=== PATIENT | male | born 1990 | race Caucasian/White ===

== ENCOUNTER 2017-07-11 22:56 | Emergency (ER) | payer OTHER ==
[~2017-07-11] VITALS: Ht 175.3 cm; Wt 88.2 kg
[2017-07-11 23:07] VITALS: BP 125/78
== END 2017-07-12 00:18 | disposition home or self-care (01) ==
LOC: ED 07-12 00:09
DX: S16.1XXA Strain of muscle, fascia and tendon at neck level, initial encounter (principal); G89.11 Acute pain due to trauma; M54.5 Low back pain; M25.561 Pain in right knee; M25.571 Pain in right ankle and joints of right foot; V49.9XXA Car occupant (driver) (passenger) injured in unspecified traffic accident, initial encounter; Y93.89 Activity, other specified; Y92.89 Other specified places as the place of occurrence of the external cause; Y99.9 Unspecified external cause status
CPT/HCPCS: 99282

== ENCOUNTER 2017-08-06 01:35 | Emergency (ER) | payer OTHER ==
[~2017-08-06] VITALS: Ht 175.3 cm; Wt 78.0 kg
[2017-08-06 01:42] VITALS: BP 137/80
== END 2017-08-06 05:12 | disposition home or self-care (01) ==
LOC: ED 03:50
DX: G89.11 Acute pain due to trauma (principal); M79.641 Pain in right hand
CPT/HCPCS: 29125; 99284

== ENCOUNTER 2020-07-23 14:28 | Emergency (ER) | payer OTHER ==
[~2020-07-23] VITALS: Ht 172.7 cm; Wt 82.0 kg
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
--- NOTE | 2020-07-23 15:48 | NUR ---
PT TO CT AND BACK. STATES NO NEEDS AT THIS TIME. VSS. NAD. WILL CONTINUE TO MONITOR
--- NOTE | 2020-07-23 16:09 | NUR ---
PT RESTING ON [employer]. STATES 3/10 NECK PAIN. DENIES NEED FOR PAIN MEDICATION INTERVENTION AT THIS TIME. VSS. NAD. CALL LIGHT W/IN REACH.
--- NOTE | 2020-07-23 16:46 | NUR ---
PT AMBULATED TO DISCHARGE W/STEADY GAIT. PT ENCOURAGED TO FOLLOWUP DISCUSSED. PT EDUCATED TO RETURN TO THE ED W/NEW OR WORSENING SYMPTOMS. RX GIVEN. WORKERS COMP PAPERWORK W/REGISTRATION. COPIES GIVEN TO PTS EMPLOYER
[2020-07-23 16:47] VITALS: BP 120/78
== END 2020-07-23 16:49 | disposition home or self-care (01) ==
LOC: ED 16:43
DX: S16.1XXA Strain of muscle, fascia and tendon at neck level, initial encounter (principal); S40.012A Contusion of left shoulder, initial encounter; S50.02XA Contusion of left elbow, initial encounter; S60.212A Contusion of left wrist, initial encounter; V89.2XXA Person injured in unspecified motor-vehicle accident, traffic, initial encounter; Y93.89 Activity, other specified; Y92.488 Other paved roadways as the place of occurrence of the external cause; Y99.8 Other external cause status
CPT/HCPCS: 72125; 99284